=== PATIENT | male | born 1945 | race Caucasian/White ===

== ENCOUNTER → 2017-12-20 | Outpatient (CLI) | payer MEDICARE ==
[~2017-12-20] MED LIST: ATOR10
[2017-12-20 16:37] LABS: Appearance, Urine Clear (Clear); Bilirubin, Urine Neg (Neg); Blood, Urine Neg (Neg); Color, Urine Yellow (P-Yellow); Glucose Qualitative, Urine Neg (Neg); Ketones, Urine Neg (Neg); Leukocyte Esterase, Urine Neg (Neg); Nitrite, Urine Neg (Neg); Protein, Urine 1+ (Neg); Urobilinogen, Urine NORM (Normal)
[2017-12-20 16:52] LABS: Protein, Urine Random 24.8 mg/dL (0.0-11.9)
== END ==
LOC: LAB SHORT 12:51
PROVIDERS: Internal Medicine
DX: R94.4 Abnormal results of kidney function studies (principal)
CPT/HCPCS: 82570; 84156

== ENCOUNTER → 2020-06-21 | Outpatient (CLI) | payer MEDICARE ==
[2020-06-22 10:32] LABS: Stool Occult Bld Immuno 1 Negative (NEGATIVE)
== END | disposition home or self-care (01) ==
LOC: LAB SHORT 07:30 → LAB 07:30
PROVIDERS: Nurse Practitioner Family
DX: Z12.11 Encounter for screening for malignant neoplasm of colon (principal)
CPT/HCPCS: G0328

== ENCOUNTER → 2021-06-30 | Outpatient (CLI) | payer MEDICARE ==
[2021-07-01 10:53] LABS: Stool Occult Bld Immuno 1 Negative (NEGATIVE)
== END | disposition home or self-care (01) ==
LOC: LAB SHORT 13:49
PROVIDERS: Nurse Practitioner Family
DX: Z12.11 Encounter for screening for malignant neoplasm of colon (principal)
CPT/HCPCS: G0328

== ENCOUNTER 2023-03-05 12:31 | Emergency (ER) | payer MEDICARE ==
[~2023-03-05] VITALS: Ht 162.6 cm; Wt 63.5 kg
[2023-03-05 13:00] LABS: BASOPHILS ABSOLUTE AUTO 0.03 K/mm3 (0.00-0.23); BASOPHILS PERCENT AUTO 1 % (0-2); EOSINOPHILS PERCENT AUTO 0 % (0-6); Hematocrit 40.9 % (37.0-53.0); Hemoglobin 14.1 g/dL (13.5-17.5); IMMATURE GRAN ABSOLUTE AUTO 0.03 K/mm3 (0.00-0.10); IMMATURE GRAN PERCENT AUTO 1 % (0-1); LYMPHOCYTES ABSOLUTE AUTO 0.31 K/mm3 (0.84-5.20); LYMPHOCYTES PERCENT AUTO 6 % (21-46); MONOCYTES PERCENT AUTO 4 % (4-13); Mean Corpuscular HGB 33.2 pg (26.0-34.0); Mean Corpuscular HGB Conc 34.5 g/dL (31.5-36.5); Mean Corpuscular Volume 96 fL (80-100); Mean Platelet Volume 9.8 fL (9.1-12.4); NEUTROPHILS ABSOLUTE AUTO 4.28 K/mm3 (1.96-9.15); NEUTROPHILS PERCENT AUTO 88 % (41-73); Platelet Count 126 K/mm3 (150-400); RDW Coefficient Variation 12.9 % (11.7-14.2); Red Blood Cell Count 4.25 M/mm3 (4.30-5.90); White Blood Cell Count 4.85 K/mm3 (4.00-11.30)
[2023-03-05 13:02] LABS: Source, Urine Clean Catch
[2023-03-05 13:12] LABS: Appearance, Urine Hazy (Clear); Bilirubin, Urine Neg (Neg); Blood, Urine 5+ (Neg); Color, Urine Yellow (P-Yellow); Glucose Qualitative, Urine Neg (Neg); Ketones, Urine 1+ (Neg); Leukocyte Esterase, Urine Neg (Neg); Nitrite, Urine Neg (Neg); Protein, Urine 3+ (Neg); Urobilinogen, Urine NORM (Normal)
[2023-03-05 13:28] LABS: Influenza A, PCR NEGATIVE (NEGATIVE); Influenza B, PCR NEGATIVE (NEGATIVE); Resp Syncytial Virus, PCR NEGATIVE (NEGATIVE); SARS-Cov-2 (COVID-19) PCR, MMC NEGATIVE (NEGATIVE)
[2023-03-05 13:30] LABS: Albumin, Blood 3.7 g/dL (3.4-5.0); Albumin/Globulin Ratio 1.2 (0.8-1.8); Bilirubin, Total 0.6 mg/dL (0.1-1.0); Bun/Creatinine Ratio 19.8 (12.0-20.0); Calcium, Blood 8.2 mg/dL (8.5-10.1); Creatinine, Blood 1.31 mg/dL (0.60-1.20); Globulin, Blood 3.2 g/dL (2.2-4.0); Total Protein, Blood 6.9 g/dL (6.4-8.2)
[2023-03-05 13:31] LABS: Bacteria Many /hpf; Squamous Epithelial Cells Few /hpf (Few)
[2023-03-05 13:42] LABS: BAND PERCENT MAN 4 % (0-8); BASOPHILS PERCENT MAN 0 % (0-2); EOSINOPHILS PERCENT MAN 0 % (0-6); LYMPHOCYTES % ATYPICAL MANUAL 2 % (0-0); LYMPHOCYTES ABSOLUTE MAN 0.24 K/mm3 (0.84-5.20); LYMPHOCYTES PERCENT MAN 3 % (21-46); MONOCYTES ABSOLUTE MAN 0.14 K/mm3 (0.16-1.47); MONOCYTES PERCENT MAN 3 % (4-13); NEUTROPHILS ABSOLUTE MAN 4.46 K/mm3 (1.96-9.15); SEG NEUTROPHILS PERCENT MAN 88 % (41-73); TOTAL CELLS COUNTED 100
[2023-03-05] MEDS ORDERED: CEPH500 PO (15:30)
[2023-03-05 16:33] VITALS: BP 111/63
== END 2023-03-05 17:00 | disposition home or self-care (01) ==
LOC: ER 12:31
PROVIDERS: Student in an Organized Health Care Education/Training Program
DX: N39.0 Urinary tract infection, site not specified (principal); E86.0 Dehydration; R41.0 Disorientation, unspecified; Z79.899 Other long term (current) drug therapy
CPT/HCPCS: 0241U; 71046; 80053; 81001; 85025; 87086; 96374; 99284-25; A9270; J0696; J7030

== ENCOUNTER 2023-03-06 02:46 | Inpatient (IN) | payer MEDICARE ==
[~2023-03-06] VITALS: Ht 165.1 cm; Wt 79.9 kg
[~2023-03-06 02:46] MED LIST changes: +CEPH500 PO
[2023-03-06 03:15] LABS: Hematocrit 35.8 % (37.0-53.0); Hemoglobin 12.2 g/dL (13.5-17.5); Mean Corpuscular HGB Conc 34.1 g/dL (31.5-36.5); Mean Corpuscular Volume 97 fL (80-100); Mean Platelet Volume 10.1 fL (9.1-12.4); Platelet Count 82 K/mm3 (150-400); RDW Coefficient Variation 12.8 % (11.7-14.2); RDW Standard Deviation 45.7 fL (35.1-46.3); White Blood Cell Count 4.02 K/mm3 (4.00-11.30)
[2023-03-06 03:26] LABS: Albumin, Blood 2.8 g/dL (3.4-5.0); Bilirubin, Total 0.4 mg/dL (0.1-1.0); Bun/Creatinine Ratio 24.2 (12.0-20.0); Calcium, Blood 7.3 mg/dL (8.5-10.1); Creatinine, Blood 1.32 mg/dL (0.60-1.20); Globulin, Blood 2.7 g/dL (2.2-4.0); Potassium, Blood 4.2 mmol/L (3.5-5.5); Total Protein, Blood 5.5 g/dL (6.4-8.2)
[2023-03-06 03:57] LABS: BAND PERCENT MAN 46 % (0-8); BASOPHILS PERCENT MAN 0 % (0-2); EOSINOPHILS PERCENT MAN 0 % (0-6); LYMPHOCYTES PERCENT MAN 5 % (21-46); MONOCYTES ABSOLUTE MAN 0.04 K/mm3 (0.16-1.47); MONOCYTES PERCENT MAN 1 % (4-13); NEUTROPHILS ABSOLUTE MAN 3.77 K/mm3 (1.96-9.15); SEG NEUTROPHILS PERCENT MAN 48 % (41-73); TOTAL CELLS COUNTED 100
--- NOTE | 2023-03-06 06:22 | NUR ---
REPORT RECIEVED FROM JAMEY DUNCAN RN AT 0600 AND AWAITING PT T/F TO ROOM 341.
[2023-03-06 06:41] VITALS: BP 112/92
[2023-03-06 08:52] VITALS: BP 123/54
[2023-03-06 11:17] LABS: Hemoglobin 12.2 g/dL (13.5-17.5); Mean Corpuscular HGB Conc 34.9 g/dL (31.5-36.5); Mean Corpuscular Volume 95 fL (80-100); Mean Platelet Volume 10.3 fL (9.1-12.4); Platelet Count 66 K/mm3 (150-400); RDW Coefficient Variation 12.8 % (11.7-14.2); RDW Standard Deviation 44.2 fL (35.1-46.3)
[2023-03-06 11:50] LABS: Albumin, Blood 2.7 g/dL (3.4-5.0); Bilirubin, Total 0.5 mg/dL (0.1-1.0); Bun/Creatinine Ratio 21.9 (12.0-20.0); Calcium, Blood 7.3 mg/dL (8.5-10.1); Creatinine, Blood 1.37 mg/dL (0.60-1.20); Globulin, Blood 2.6 g/dL (2.2-4.0); Potassium, Blood 3.9 mmol/L (3.5-5.5); Total Protein, Blood 5.3 g/dL (6.4-8.2)
[2023-03-06 12:32] LABS: BAND PERCENT MAN 29 % (0-8); BASOPHILS PERCENT MAN 0 % (0-2); EOSINOPHILS PERCENT MAN 0 % (0-6); LYMPHOCYTES ABSOLUTE MAN 0.07 K/mm3 (0.84-5.20); LYMPHOCYTES PERCENT MAN 2 % (21-46); MONOCYTES ABSOLUTE MAN 0.03 K/mm3 (0.16-1.47); MONOCYTES PERCENT MAN 1 % (4-13); NEUTROPHILS ABSOLUTE MAN 3.78 K/mm3 (1.96-9.15); SEG NEUTROPHILS PERCENT MAN 68 % (41-73); TOTAL CELLS COUNTED 100
[2023-03-06 16:29] VITALS: BP 130/73
--- NOTE | 2023-03-06 18:03 | NUR ---
PATIENT A/OX2-3 THIS SHIFT. AT BEDSIDE THROUGHOUT THE DAY AND IS VERY CONCERNED ABOUT PATIENTS WEAKNESS. ATTEMPTED TO STAND PATIENT AT SIDE OF BED AND HE HAD DIFFICULTY FOLLOWING DIRECTION AND BEARING WEIGHT. UNABLE TO TO TAKE ANY STEPS. CONTINENT OF URINE, USING URINAL WITH ASSISTANCE. NS INFUSING AT 100ML/HR. ACHS BLOOD SUGARS, COVERAGE PER SLIDING SCALE. TOLERATING VEGETARIAN DIET. DENIES ANY PAIN OR DISCOMFORT. FALL PRECAUTIONS IN PLACE PER UNIT PROTOCOL.
[2023-03-06 20:29] VITALS: BP 126/50
[2023-03-07] VITALS (16 sets, daily range): BP systolic 93–149; BP diastolic 51–126
[2023-03-07 04:56] LABS: Hematocrit 35.7 % (37.0-53.0); Hemoglobin 12.2 g/dL (13.5-17.5); Mean Corpuscular HGB 32.4 pg (26.0-34.0); Mean Corpuscular HGB Conc 34.2 g/dL (31.5-36.5); Mean Corpuscular Volume 95 fL (80-100); RDW Coefficient Variation 12.6 % (11.7-14.2); Red Blood Cell Count 3.77 M/mm3 (4.30-5.90); White Blood Cell Count 3.05 K/mm3 (4.00-11.30)
[2023-03-07 05:06] LABS: Platelet Count 40 K/mm3 (150-400)
[2023-03-07 05:12] LABS: Albumin, Blood 2.7 g/dL (3.4-5.0); Anion Gap 6 mmol/L (6-16); Blood Urea Nitrogen 28 mg/dL (8-24); Bun/Creatinine Ratio 21.1 (12.0-20.0); CO2, Blood 23 mmol/L (21-32); Calcium, Blood 7.7 mg/dL (8.5-10.1); Chloride, Blood 106 mmol/L (98-108); Creatinine, Blood 1.33 mg/dL (0.60-1.20); Glomerular Filtration Rate 55 (60-); Glucose, Blood 169 mg/dL (70-99); Magnesium, Blood 1.9 mg/dL (1.6-2.4); Phosphorus, Blood 2.5 mg/dL (2.5-4.9); Potassium, Blood 3.5 mmol/L (3.5-5.5); Sodium, Blood 135 mmol/L (136-145)
--- NOTE | 2023-03-07 05:13 | NUR ---
CRITICAL PLATELET NOW 40: WAS 126 ON 03/05/23 AND HAS TRENDED DOWNWARD TO 82 THEN 66 AND NOW 50. MADE AWARE AND HE PLANS TO REVIEW HIS CHART AND PLACE ORDERS INDICATED.
[2023-03-07 05:46] LABS: BAND PERCENT MAN 46 % (0-8); BASOPHILS PERCENT MAN 0 % (0-2); EOSINOPHILS PERCENT MAN 0 % (0-6); LYMPHOCYTES % ATYPICAL MANUAL 2 % (0-0); LYMPHOCYTES ABSOLUTE MAN 0.18 K/mm3 (0.84-5.20); LYMPHOCYTES PERCENT MAN 4 % (21-46); METAMYELOCYTE ABSOLUTE MAN 0.06 K/mm3 (0.00-0.00); METAMYELOCYTE PERCENT MAN 2 % (0-0); MONOCYTES PERCENT MAN 0 % (4-13); SEG NEUTROPHILS PERCENT MAN 46 % (41-73); TOTAL CELLS COUNTED 100
--- NOTE | 2023-03-07 06:42 | NUR ---
SUMMARY: PT A/OX2-3 BUT FORGETULL AND IMPULSIVE W/BED ALARM ON FOR FALL RISK. HE REMAINS WEAK, HAS ITERMITTENT DIFFICULTY FOLLOWING INSTRUCTION AND LACKS AWARENESS OF CURRENT LIMITATIONS. IS CONCERNED ABOUT INABILITY TO CARE FOR HIM IF STRENGTH DOESN'T IMPROVE SO PT/OT MAY BE NEEDED PRIOR TO D/C. NS INFUSES AT 100 ML/HR AND IV ABX RECEIVED ON DAY SHIFT FOR UROSEPSIS. CBG'S IMPROVED AT HS AND NO COVERAGE WAS REQUIRED. HE'S BEEN MOSTLY INCONTINENT T/O NOCTE W/URINAL ASSIST PROVIDED WHEN INDICATED AND ATTENDS CHANGED PRN. MEPILEX APPLIED TO BUTTOCKS FOR SBD PREVENTION. TYLENOL RECEIVED PRN FOR TMAX 100.8. ALL OTHER VSS. PLATELETS HAVE TRENDED DOWNWARD FROM 126 ON 03/05/23 AND ARE NOW CRITICAL AT 40. WAS MADE AWARE AND HE'S REVIEWING PT'S CHART TO PLACE ORDERS INDICATED, WILL ENSURE DAY STAFF ARE AWARE. WCTM/REPORT TO DAY RN.
[2023-03-07 11:23] LABS: Hematocrit 35.3 % (37.0-53.0); Hemoglobin 12.2 g/dL (13.5-17.5); Mean Corpuscular HGB 32.4 pg (26.0-34.0); Mean Corpuscular HGB Conc 34.6 g/dL (31.5-36.5); Mean Corpuscular Volume 94 fL (80-100); Mean Platelet Volume 12.4 fL (9.1-12.4); RDW Coefficient Variation 12.6 % (11.7-14.2); RDW Standard Deviation 43.3 fL (35.1-46.3); Red Blood Cell Count 3.76 M/mm3 (4.30-5.90); White Blood Cell Count 2.84 K/mm3 (4.00-11.30)
[2023-03-07 11:33] LABS: Platelet Count 34 K/mm3 (150-400)
[2023-03-07 11:37] LABS: International Normalized Ratio 1.22; Prothrombin Time Results 12.7 Sec (9.7-11.5)
[2023-03-07 11:54] LABS: BAND PERCENT MAN 32 % (0-8); BASOPHILS PERCENT MAN 0 % (0-2); EOSINOPHILS PERCENT MAN 0 % (0-6); LYMPHOCYTES % ATYPICAL MANUAL 3 % (0-0); LYMPHOCYTES ABSOLUTE MAN 0.34 K/mm3 (0.84-5.20); LYMPHOCYTES PERCENT MAN 9 % (21-46); MONOCYTES ABSOLUTE MAN 0.05 K/mm3 (0.16-1.47); MONOCYTES PERCENT MAN 2 % (4-13); NEUTROPHILS ABSOLUTE MAN 2.44 K/mm3 (1.96-9.15); SEG NEUTROPHILS PERCENT MAN 54 % (41-73); TOTAL CELLS COUNTED 100
[2023-03-07 14:31] LABS: BASOPHILS ABSOLUTE AUTO 0.02 K/mm3 (0.00-0.23); BASOPHILS PERCENT AUTO 1 % (0-2); Hematocrit 35.5 % (37.0-53.0); Hemoglobin 12.2 g/dL (13.5-17.5); Mean Corpuscular HGB 32.7 pg (26.0-34.0); Mean Corpuscular HGB Conc 34.4 g/dL (31.5-36.5); Mean Corpuscular Volume 95 fL (80-100); RDW Coefficient Variation 12.6 % (11.7-14.2); RDW Standard Deviation 44.4 fL (35.1-46.3); Red Blood Cell Count 3.73 M/mm3 (4.30-5.90)
[2023-03-07 15:03] LABS: EOSINOPHILS PERCENT AUTO 0 % (0-6); IMMATURE GRAN ABSOLUTE AUTO 0.03 K/mm3 (0.00-0.10); IMMATURE GRAN PERCENT AUTO 1 % (0-1); LYMPHOCYTES ABSOLUTE AUTO 0.57 K/mm3 (0.84-5.20); LYMPHOCYTES PERCENT AUTO 18 % (21-46); MONOCYTES ABSOLUTE AUTO 0.09 K/mm3 (0.16-1.47); MONOCYTES PERCENT AUTO 3 % (4-13); NEUTROPHILS ABSOLUTE AUTO 2.39 K/mm3 (1.96-9.15); NEUTROPHILS PERCENT AUTO 77 % (41-73)
[2023-03-07 15:04] LABS: Mean Platelet Volume 12.9 fL (9.1-12.4); White Blood Cell Count 3.01 K/mm3 (4.00-11.30)
[2023-03-07 15:08] LABS: Platelet Count 26 K/mm3 (150-400)
[2023-03-07 15:12] LABS: BAND PERCENT MAN 40 % (0-8); BASOPHILS ABSOLUTE MAN 0.03 K/mm3 (0.00-0.23); BASOPHILS PERCENT MAN 1 % (0-2); EOSINOPHILS PERCENT MAN 0 % (0-6); LYMPHOCYTES % ATYPICAL MANUAL 4 % (0-0); LYMPHOCYTES ABSOLUTE MAN 0.33 K/mm3 (0.84-5.20); LYMPHOCYTES PERCENT MAN 7 % (21-46); MONOCYTES ABSOLUTE MAN 0.15 K/mm3 (0.16-1.47); MONOCYTES PERCENT MAN 5 % (4-13); NEUTROPHILS ABSOLUTE MAN 2.49 K/mm3 (1.96-9.15); SEG NEUTROPHILS PERCENT MAN 43 % (41-73); TOTAL CELLS COUNTED 100
--- NOTE | 2023-03-07 16:00 | NUR ---
TRANSFER TO ICU AND SUMMARY PATIENT CONFUSED AT TIMES BUT REDIRECTABLE. PATIENT CONTINUES TO HAVE FEVERS. URINE CONTINUES TO BE DARK. PLATELET COUNT CONTINUES TO WORSEN. DR CARRILLO REQUESTING PATIENT TO BE TRANSFERRED TO ICU. REPORT CALLED TO [facility]. PATIENT TRANSFERED VIA BED TO ICU 6. WEDDING RING REMOVED AND GIVEN TO PRIOR TO TRANSFER.
[2023-03-07 17:10] LABS: Source, Urine Foley catheter
[2023-03-07 17:13] LABS: Appearance, Urine Hazy (Clear); Bilirubin, Urine Neg (Neg); Blood, Urine 5+ (Neg); Color, Urine Yellow (P-Yellow); Glucose Qualitative, Urine 2+ (Neg); Ketones, Urine Neg (Neg); Leukocyte Esterase, Urine Neg (Neg); Nitrite, Urine Neg (Neg); Protein, Urine 3+ (Neg); Urobilinogen, Urine NORM (Normal)
[2023-03-07 17:38] LABS: Amorphous Mod (0-Heavy); Squamous Epithelial Cells Not Seen /hpf (Few)
[2023-03-07 17:39] LABS: Bacteria Mod /hpf
[2023-03-07 17:42] LABS: Granular Casts 0-2 /lpf (0)
[2023-03-07 18:06] LABS: Hemoglobin 11.5 g/dL (13.5-17.5); Mean Corpuscular HGB 32.6 pg (26.0-34.0); Mean Corpuscular HGB Conc 34.8 g/dL (31.5-36.5); Mean Corpuscular Volume 94 fL (80-100); RDW Coefficient Variation 12.6 % (11.7-14.2); RDW Standard Deviation 43.2 fL (35.1-46.3); Red Blood Cell Count 3.53 M/mm3 (4.30-5.90); White Blood Cell Count 2.55 K/mm3 (4.00-11.30)
[2023-03-07 18:14] LABS: Mean Platelet Volume 13.1 fL (9.1-12.4)
[2023-03-07 18:15] LABS: Platelet Count 26 K/mm3 (150-400)
[2023-03-07 18:32] LABS: BAND PERCENT MAN 28 % (0-8); BASOPHILS PERCENT MAN 0 % (0-2); EOSINOPHILS PERCENT MAN 0 % (0-6); LYMPHOCYTES % ATYPICAL MANUAL 4 % (0-0); LYMPHOCYTES ABSOLUTE MAN 0.45 K/mm3 (0.84-5.20); LYMPHOCYTES PERCENT MAN 14 % (21-46); MONOCYTES PERCENT MAN 4 % (4-13); NEUTROPHILS ABSOLUTE MAN 1.98 K/mm3 (1.96-9.15); SEG NEUTROPHILS PERCENT MAN 50 % (41-73); TOTAL CELLS COUNTED 100
--- NOTE | 2023-03-07 18:36 | NUR ---
CARE ASSUMPTION/ICU SHIFT SUMMARY PT ARRIVED TO ICU FROM MEDICAL FLOOR FOR CONCERNS OF WORSENING SYMPTOMS. PT ARRIVIED ALERT KNOWING HIS NAME AND BUT COULD NOT TELL ME WHERE HE WAS OR WHY HE IS HERE. PT'S TEMP ON ARRIVAL WAS 104.2 TEMPORALLY SO PROVIDER ORDERED TEMP HUBER FOR CRITICAL CARE I&O'S WELL TEMPATURE MONITORING. COOLING BLANKETS AND ICE PACKS APPLIED ON PT WELL TYLENOL GIVEN, TEMP TRENDING DOWN TO 101.6 AT THIS TIME. PT'S BP WNL AND STABLE. MONITOR SHOWING SR 70'S-80'S. PT DENYING ANY PAIN OR NAUSEA. PT'S FAMILY AT BEDSIDE. NS RUNNING AT 100ML/HR. WILL REPORT TO ONCOMING RN.
[2023-03-08] VITALS (68 sets, daily range): BP systolic 92–158; BP diastolic 49–115
[2023-03-08 02:16] LABS: Hematocrit 33.5 % (37.0-53.0); Hemoglobin 11.6 g/dL (13.5-17.5); Mean Corpuscular HGB 32.3 pg (26.0-34.0); Mean Corpuscular HGB Conc 34.6 g/dL (31.5-36.5); Mean Corpuscular Volume 93 fL (80-100); RDW Coefficient Variation 12.8 % (11.7-14.2); RDW Standard Deviation 44.4 fL (35.1-46.3); Red Blood Cell Count 3.59 M/mm3 (4.30-5.90); White Blood Cell Count 2.62 K/mm3 (4.00-11.30)
[2023-03-08 02:21] LABS: Mean Platelet Volume 13.6 fL (9.1-12.4)
[2023-03-08 02:22] LABS: Platelet Count 22 K/mm3 (150-400)
[2023-03-08 02:35] LABS: C-REACTIVE PROTEIN, EXT RANGE 14.3 mg/dL (0.000-0.300); Magnesium, Blood 2.1 mg/dL (1.6-2.4)
[2023-03-08 02:59] LABS: BAND PERCENT MAN 15 % (0-8); BASOPHILS PERCENT MAN 0 % (0-2); EOSINOPHILS PERCENT MAN 0 % (0-6); LYMPHOCYTES % ATYPICAL MANUAL 5 % (0-0); LYMPHOCYTES ABSOLUTE MAN 0.36 K/mm3 (0.84-5.20); LYMPHOCYTES PERCENT MAN 9 % (21-46); MONOCYTES ABSOLUTE MAN 0.13 K/mm3 (0.16-1.47); MONOCYTES PERCENT MAN 5 % (4-13); NEUTROPHILS ABSOLUTE MAN 2.12 K/mm3 (1.96-9.15); SEG NEUTROPHILS PERCENT MAN 66 % (41-73); TOTAL CELLS COUNTED 100; Thyroid Stimulating Hormone 0.525 uIU/mL (0.360-4.800)
[2023-03-08 03:00] LABS: Albumin, Blood 2.4 g/dL (3.4-5.0); Albumin/Globulin Ratio 0.9 (0.8-1.8); Bilirubin, Total 0.9 mg/dL (0.1-1.0); Creatinine, Blood 1.24 mg/dL (0.60-1.20); Globulin, Blood 2.8 g/dL (2.2-4.0); Phosphorus, Blood 3.8 mg/dL (2.5-4.9); Potassium, Blood 3.7 mmol/L (3.5-5.5); Total Protein, Blood 5.2 g/dL (6.4-8.2)
--- NOTE | 2023-03-08 05:25 | NUR ---
PATIENT MENTATION IMPROVED OVERNIGHT. PATIENT NOW AOX2-3. FOLLOWS COMMANDS AND MOVES ALL EXTREMITIES WITH EQUAL STRENGTH. PATIENT SR WHILE AWAKE, AND SINUS ANI WHILE SLEEPING WITH A HR LOW 40. PATIENT BRIEFLY WENT INTO A VENTRICULAR RHYTHM FOLLOWED BY AFIB BEFORE CONVERTING BACK TO SINUS ANI. RHYTHM SAVED TO CHART. PATIENT BEGAN SHIFT FEBRILE WITH COOLING BLANKET ON. COOLING BLANKET REMOVED WHEN PATIENT WAS 97.5. PATIENT THEN BECAME HYPOTHERMIC AND ABBY HUGGER APPLIED WHEN PATIENT WAS 95.2. PATIENT TEMPERATURE CONTINUED TO DROP TO 94.1 WHEN A WARMING BLANKET WAS APPLIED UNDERNEATH PATIENT, IN ADDITION TO THE ABBY HUGGER. BOTH ABBY HUGGER AND WARMING BLANKET REMOVED WHEN PATIENT REACHED 96. PATIENT NOW FEBRILE AT 100.5. TEMPS CONFIRMED WITH HUBER TEMP PROBE AND RECTAL PROBE. ROOM AIR. HUBER IN PLACE. AND SON AT BEDSIDE.
--- NOTE | 2023-03-08 07:15 | NUR ---
Assumed care of pt at 0700. Report recieved from Kojo RODRIGUEZ. Pt A&O x 4. Answers questions, follows commands, verbalizes needs. Pleasant and cooperative with care. SpO2 90% or greater with 2 LPM NC. Spouse Cindy, sons Obed and Mo at bedside. Pt transferred to ICU 13 as other side of unit is being opened.
[2023-03-08 12:29] LABS: Hematocrit 35.5 % (37.0-53.0); Hemoglobin 12.3 g/dL (13.5-17.5); Mean Corpuscular HGB 32.6 pg (26.0-34.0); Mean Corpuscular HGB Conc 34.6 g/dL (31.5-36.5); Mean Corpuscular Volume 94 fL (80-100); RDW Coefficient Variation 13.1 % (11.7-14.2); RDW Standard Deviation 45.1 fL (35.1-46.3); Red Blood Cell Count 3.77 M/mm3 (4.30-5.90); White Blood Cell Count 3.34 K/mm3 (4.00-11.30)
[2023-03-08 12:39] LABS: Mean Platelet Volume 14.2 fL (9.1-12.4); Platelet Count 19 K/mm3 (150-400)
[2023-03-08 13:26] LABS: BAND PERCENT MAN 27 % (0-8); BASOPHILS PERCENT MAN 0 % (0-2); EOSINOPHILS PERCENT MAN 0 % (0-6); LYMPHOCYTES % ATYPICAL MANUAL 3 % (0-0); LYMPHOCYTES PERCENT MAN 15 % (21-46); MONOCYTES PERCENT MAN 3 % (4-13); NEUTROPHILS ABSOLUTE MAN 2.63 K/mm3 (1.96-9.15); SEG NEUTROPHILS PERCENT MAN 52 % (41-73); TOTAL CELLS COUNTED 100
[2023-03-08 16:16] LABS: Hematocrit 36.1 % (37.0-53.0); Hemoglobin 12.5 g/dL (13.5-17.5); Mean Corpuscular HGB 32.6 pg (26.0-34.0); Mean Corpuscular HGB Conc 34.6 g/dL (31.5-36.5); Mean Corpuscular Volume 94 fL (80-100); RDW Coefficient Variation 13.1 % (11.7-14.2); RDW Standard Deviation 45.4 fL (35.1-46.3); Red Blood Cell Count 3.84 M/mm3 (4.30-5.90); White Blood Cell Count 3.93 K/mm3 (4.00-11.30)
[2023-03-08 16:30] LABS: Mean Platelet Volume 14.7 fL (9.1-12.4); Platelet Count 19 K/mm3 (150-400)
[2023-03-08 16:41] LABS: BAND PERCENT MAN 2 % (0-8); BASOPHILS PERCENT MAN 0 % (0-2); EOSINOPHILS PERCENT MAN 0 % (0-6); LYMPHOCYTES % ATYPICAL MANUAL 5 % (0-0); LYMPHOCYTES ABSOLUTE MAN 1.25 K/mm3 (0.84-5.20); LYMPHOCYTES PERCENT MAN 27 % (21-46); MONOCYTES ABSOLUTE MAN 0.19 K/mm3 (0.16-1.47); MONOCYTES PERCENT MAN 5 % (4-13); NEUTROPHILS ABSOLUTE MAN 2.47 K/mm3 (1.96-9.15); SEG NEUTROPHILS PERCENT MAN 61 % (41-73); TOTAL CELLS COUNTED 100
--- NOTE | 2023-03-08 19:19 | NUR ---
SUMMARY Neuro: Pt A&O x 4. This AM, patient was slow to respond, but now he is much more talkative. Follows directions well, was able to participate in BMAT and also feed himself. Pt's spouse states that yesterday, he was not able to follow directions when staff tried to get him up out of bed and pt was not able to feed himself. Spouse states "he is 100% better than yesterday". Musc: Weak. PT/OT ordered. Pt is able to assist with some of his ADLs and was feeding himself and shaved himself with verbal cues from . Pt requires gait belt and walker with assist from 1-2 staff. Resp: Lungs clear, dim in bases. Initially on 2 LPM NC, but has been on room air for majoiryt of day. Cardiac: SB-SR. HR ranges from 45-65. BP stable. No edema. 2+ radial and pedal pulses. GI: Excellent appetite. One large formed brown BM today. : Good urine output from robles catheter. Skin: Unchanged from initial assessment. Psych: Pt's spouse Alejandrina and sons Gustavo and Mo at bedside all day. Very supportive and involved in patient's care.
--- NOTE | 2023-03-08 19:55 | NUR ---
CRITICAL LAB VALUE NOTIFICATION All critical lab values notified to Dr Irving
--- NOTE | 2023-03-08 20:37 | NUR ---
ASSUMED CARE PT IS A&O. SPO2 >92% ON RA; MAP >65; NSR/SB. PT DENIES CP, SOB, OR NAUSEA. PT'S AT BEDSIDE, STATES THAT IS "BACK TO NORMAL". PT OUT OF CHAIR, BACK INTO BED. HUBER CATHETER PATENT AND DRAINING TO GRAVITY.
[2023-03-09] VITALS (13 sets, daily range): BP systolic 109–154; BP diastolic 57–89
[2023-03-09 03:34] LABS: Hematocrit 33.3 % (37.0-53.0); Hemoglobin 11.6 g/dL (13.5-17.5); Mean Corpuscular HGB 32.6 pg (26.0-34.0); Mean Corpuscular HGB Conc 34.8 g/dL (31.5-36.5); Mean Corpuscular Volume 94 fL (80-100); RDW Coefficient Variation 13.1 % (11.7-14.2); RDW Standard Deviation 45.1 fL (35.1-46.3); Red Blood Cell Count 3.56 M/mm3 (4.30-5.90); White Blood Cell Count 5.39 K/mm3 (4.00-11.30)
[2023-03-09 03:44] LABS: Platelet Count 18 K/mm3 (150-400)
[2023-03-09 04:07] LABS: BAND PERCENT MAN 31 % (0-8); BASOPHILS PERCENT MAN 0 % (0-2); EOSINOPHILS PERCENT MAN 0 % (0-6); LYMPHOCYTES % ATYPICAL MANUAL 4 % (0-0); LYMPHOCYTES ABSOLUTE MAN 1.45 K/mm3 (0.84-5.20); LYMPHOCYTES PERCENT MAN 23 % (21-46); METAMYELOCYTE ABSOLUTE MAN 0.05 K/mm3 (0.00-0.00); METAMYELOCYTE PERCENT MAN 1 % (0-0); MONOCYTES ABSOLUTE MAN 0.43 K/mm3 (0.16-1.47); MONOCYTES PERCENT MAN 8 % (4-13); NEUTROPHILS ABSOLUTE MAN 3.39 K/mm3 (1.96-9.15); PLASMA CELL ABSOLUTE MAN 0.05 K/mm3 (0.00-0.00); PLASMA CELLS PERCENT MAN 1 % (0-0); SEG NEUTROPHILS PERCENT MAN 32 % (41-73); TOTAL CELLS COUNTED 100
--- NOTE | 2023-03-09 06:20 | NUR ---
SHIFT SUMMARY PT RESTED QUIETLY/SLEPT FOR MOST OF NIGHT. PT CONTINUES TO DENY CP, SOB, OR NAUSEA. NO ACUTE EVENTS OVERNIGHT.
[2023-03-09 06:39] LABS: Albumin, Blood 2.4 g/dL (3.4-5.0); Albumin/Globulin Ratio 0.9 (0.8-1.8); Bilirubin, Total 0.7 mg/dL (0.1-1.0); Bun/Creatinine Ratio 28.8 (12.0-20.0); Calcium, Blood 8.2 mg/dL (8.5-10.1); Creatinine, Blood 1.32 mg/dL (0.60-1.20); Globulin, Blood 2.8 g/dL (2.2-4.0); Phosphorus, Blood 3.3 mg/dL (2.5-4.9); Total Protein, Blood 5.2 g/dL (6.4-8.2)
--- NOTE | 2023-03-09 07:15 | NUR ---
Assumed care at 0700. Report received from Michael Miller RN. Pt A&O x 4. Answers questions, follows commands, verbalizes needs. Pleasant and cooperative with care. Initially on 2 LPM NC, which he has been needing at night during previous night shifts. As pt is awake, he was successfully titrated back to room air. SB per monitor. BP stable. Pt's Alejandrina at bedside
[2023-03-09 08:45] LABS: International Normalized Ratio 1.05
[2023-03-09 14:56] LABS: Vancomycin, Trough 10.9 ug/mL (5.0-10.0)
--- NOTE | 2023-03-09 14:56 | NUR ---
Transferred to PCU 17. Report given to Josh RODRIGUEZ. Pt's spouse at bedside at time of transfer. Pt SR, on room air. Plan of care discussed with Dr Irving. Pt's home vitamin regimen ordered. CT PE study ordered to r/o clot since bilat venous duplex was negative. 250 mL bolus NS given before CT scan. Plan to bolus an additional [address] scan.
--- NOTE | 2023-03-09 15:01 | NUR ---
TRANSFER: RECEIVED REPORT FROM MELLO Miller RN. PT TRANSFERRED TO U 13 @1445 VIA RECLINER. BP STABLE, HR SR 80'S, AFEBRILE, SATS >96% ON ROOM AIR. RESPIRATIONS EVEN AND UNLABORED AT REST. PULSES STRONG AND EQUAL THROUGHOUT. PLAN FOR PE STUDY THIS AFTERNOON, PT WILL RECEIVE 250ML BOLUS AFTER STUDY, PER MD ORDERS. POWERGLIDE IN JENNYFER, DRAWS AND FLUSHES. AT BEDSIDE, UPDATED ON PT CARE. CALL LIGHT IN REACH.
--- NOTE | 2023-03-09 17:21 | NUR ---
SHIFT SUMMARY: PT ALERT AND ORIENTED X4, ABLE TO FOLLOW COMMANDS AND MAKE NEEDS KNOWN. COOPERATIVE WITH CARE. BP AND HR STABLE, AFEBRILE, SATS >96% ON ROOM AIR. PE STUDY COMPLETED THIS AFTERNOON. 250ML BOLUS COMPLETED AFTERWARDS. CBG 250-300 THIS SHIFT, COVERED PER EMAR. VANCO GTT IN L FOREARM. ZOSYN GTT IN R. UPPER POWERGLIDE. POWERGLIDE DRAWS AND FLUSHES. PT ONE PERSON ASSIST W/FWW. ABLE TO USE URINAL IND AT BEDSIDE. BED ALARM ON FOR SAFETY. BED IN LOW, CALL LIGHT IN REACH, WILL REPORT TO ONCOMING RN.
[2023-03-10] VITALS (7 sets, daily range): BP systolic 112–145; BP diastolic 61–81
[2023-03-10 04:14] LABS: Hematocrit 30.8 % (37.0-53.0); Hemoglobin 10.6 g/dL (13.5-17.5); Mean Corpuscular HGB 32.1 pg (26.0-34.0); Mean Corpuscular HGB Conc 34.4 g/dL (31.5-36.5); Mean Corpuscular Volume 93 fL (80-100); RDW Coefficient Variation 13.2 % (11.7-14.2); RDW Standard Deviation 45.5 fL (35.1-46.3); White Blood Cell Count 10.72 K/mm3 (4.00-11.30)
[2023-03-10 04:21] LABS: Platelet Count 24 K/mm3 (150-400)
[2023-03-10 04:39] LABS: Albumin, Blood 2.1 g/dL (3.4-5.0); Albumin/Globulin Ratio 0.8 (0.8-1.8); Bilirubin, Total 0.6 mg/dL (0.1-1.0); Bun/Creatinine Ratio 29.7 (12.0-20.0); Creatinine, Blood 1.48 mg/dL (0.60-1.20); Globulin, Blood 2.6 g/dL (2.2-4.0); Magnesium, Blood 2.1 mg/dL (1.6-2.4); Phosphorus, Blood 3.1 mg/dL (2.5-4.9); Potassium, Blood 4.3 mmol/L (3.5-5.5); Total Protein, Blood 4.7 g/dL (6.4-8.2)
--- NOTE | 2023-03-10 05:11 | NUR ---
SHIFT SUMMARY NO ACUTE CHANGES OVERNIGHT. PT WITH SON AT BEDSIDE THROUGHOUT THE NIGHT. SON ASSISTING PT WITH URINAL. BED ALARM ON FOR SAFETY. PT A&O, OCCASIONALLY FORGETFUL, ABLE TO MAKE NEEDS KNOWN. SON DENIED PT HAVING EPISODES OF CONFUSION DURING THE NIGHT. BP STABLE. SB ON MONITOR WITH HR 40-50'S, OCCASIONALLY ANI TO THE 30'S WHILE SLEEPING. PT REPORTS OCCASIONAL DIZZINESS WITH MOVEMENT. AFEBRILE THROUGHOUT THIS SHIFT. ON RA WITH SPO2 >92%. BED IN LOWEST POSITION AND CALL LIGHT WITHIN REACH. THIS RN WILL CONTINUE TO MONITOR UNTIL SHIFT CHANGE AT 0700
[2023-03-10 05:50] LABS: BAND PERCENT MAN 5 % (0-8); BASOPHILS PERCENT MAN 0 % (0-2); EOSINOPHILS PERCENT MAN 0 % (0-6); LYMPHOCYTES % ATYPICAL MANUAL 4 % (0-0); LYMPHOCYTES ABSOLUTE MAN 4.07 K/mm3 (0.84-5.20); LYMPHOCYTES PERCENT MAN 34 % (21-46); METAMYELOCYTE PERCENT MAN 1 % (0-0); MONOCYTES ABSOLUTE MAN 0.53 K/mm3 (0.16-1.47); MONOCYTES PERCENT MAN 5 % (4-13); SEG NEUTROPHILS PERCENT MAN 51 % (41-73); TOTAL CELLS COUNTED 100
--- NOTE | 2023-03-10 17:42 | NUR ---
SHIFT SUMMARY: PT ALERT AND ORIENTED X4, ABLE TO FOLLOW COMMANDS AND MAKE NEEDS KNOWN. FORGETFUL AT TIMES. BP STABLE, HR SB 40'S, AFEBILE, SATS >95% ON ROOM AIR. RESPIRATIONS EVEN AND UNLABORED. DENIES CP/PRESSURE. PT ABLE TO WORK WITH PHYSICAL THERAPY THIS AFTERNOON. TOLERATED WELL. FAMILY REMAINED AT BEDSIDE THROUGHOUT THE DAY, UPDATED ON PT CARE. BED IN LOW, ALARM ON FOR SAFETY, CALL LIGHT IN REACH, WILL REPORT TO ONCOMING RN.
[2023-03-11 04:22] VITALS: BP 130/69
--- NOTE | 2023-03-11 06:40 | NUR ---
SHIFT SUMMARY NO ACUTE CHANGES OVERNIGHT. VITALS REMAIN STABLE. SB WITH HR 40-50'S, OCCASIONALLY ANI TO HIGH 30'S WHILE SLEEPING. PT DENIES DIZZINESS, SOB, OR CHEST PAIN/PRESSURE. ON RA WHILE AWAKE; 2L VIA NC PLACED WHILE SLEEPING D/T PT OCCASIONALLY DESATTING TO THE 80'S. PT ANSWERING QUESTIONS APPROPRIATELY, BUT OCCASIONALLY APPEARS CONFUSED WITH TASKS OR FORGETFUL WITH CONVERSATION. OTHERWISE HE HAS BEEN CALM AND COOPERATIVE WITH CARE. BED ALARM ON FOR SAFETY. AMBULATING WITH 1P ASSIST AND FWW/GAITBELT TO BATHROOM. FAMILY AT BEDSIDE THROUGHOUT THE NIGHT. BED IN LOWEST POSITION AND CALL LIGHT WITHIN REACH. THIS RN WILL CONTINUE TO MONITOR UNTIL SHIFT CHANGE AT 0700.
[2023-03-11 07:08] LABS: Albumin, Blood 2.2 g/dL (3.4-5.0); Anion Gap 6 mmol/L (6-16); Blood Urea Nitrogen 43 mg/dL (8-24); Bun/Creatinine Ratio 30.5 (12.0-20.0); CO2, Blood 23 mmol/L (21-32); Calcium, Blood 7.5 mg/dL (8.5-10.1); Chloride, Blood 110 mmol/L (98-108); Creatinine, Blood 1.41 mg/dL (0.60-1.20); Glomerular Filtration Rate 51 (60-); Glucose, Blood 123 mg/dL (70-99); Phosphorus, Blood 3.3 mg/dL (2.5-4.9); Potassium, Blood 4.1 mmol/L (3.5-5.5); Sodium, Blood 139 mmol/L (136-145)
[2023-03-11 08:06] VITALS: BP 138/79
[2023-03-11 08:25] LABS: Hematocrit 32.7 % (37.0-53.0); Hemoglobin 11.2 g/dL (13.5-17.5); Mean Corpuscular HGB Conc 34.3 g/dL (31.5-36.5); Mean Corpuscular Volume 93 fL (80-100); RDW Coefficient Variation 13.9 % (11.7-14.2); RDW Standard Deviation 47.4 fL (35.1-46.3); White Blood Cell Count 16.21 K/mm3 (4.00-11.30)
[2023-03-11 08:35] LABS: Mean Platelet Volume 13.8 fL (9.1-12.4)
[2023-03-11 08:38] LABS: Platelet Count 42 K/mm3 (150-400)
[2023-03-11 09:02] LABS: BASOPHILS PERCENT MAN 0 % (0-2); EOSINOPHILS ABSOLUTE MAN 0.16 K/mm3 (0.00-0.68); EOSINOPHILS PERCENT MAN 1 % (0-6); LYMPHOCYTES % ATYPICAL MANUAL 5 % (0-0); LYMPHOCYTES ABSOLUTE MAN 7.94 K/mm3 (0.84-5.20); LYMPHOCYTES PERCENT MAN 44 % (21-46); MONOCYTES ABSOLUTE MAN 0.64 K/mm3 (0.16-1.47); MONOCYTES PERCENT MAN 4 % (4-13); NEUTROPHILS ABSOLUTE MAN 7.45 K/mm3 (1.96-9.15); SEG NEUTROPHILS PERCENT MAN 46 % (41-73); TOTAL CELLS COUNTED 100
[2023-03-11 11:26] VITALS: BP 139/71
--- NOTE | 2023-03-11 14:02 | NUR ---
I ASSUMED CARE OF THE PT, AND OBTAINED REPORT FROM ROSE Fuentes RN.
[2023-03-11 16:00] VITALS: BP 138/78
--- NOTE | 2023-03-11 17:56 | NUR ---
AFTERNOON SUMMARY I ASSUMED CARE OF THE PT THIS AFTER NOON. HE HAS HAD FAMILY AT BEDSIDE ALL DAY. PT IS A&OX3-4, IS SLOW TO RESPOND, AND HE ANSWERS QUESTIONS IN SHORT RESPONSES. HE DID HAVE DIFFICULTY EATING DINNER, AND WAS CHOKING ON RICE. THE FAMILY AND PT WERE EUCATED ON THE RISKS OF RICE WHEN A PT IS HAVING DIFFICULTY SWALLOWING. I DID A NEURO CHECK AND THE PT DOES NOT HAVE ANY DEFICIT WITH HIS SMILE OR TOUNGE.BILATERAL EQUAL STRENGTH IN ALL EXTREMITIES. PUPILS, PERRLA. THE FAMILY STATED THEY HAVE NOTICED A DECLINE IN THE LAST YEAR WITH THE PT'S SPEECH. DR. CARRILLO WANTS THE PT TO FOLLOW UP WITH HIS PCP FOR A DEMENTIA WORK UP. ALSO, THE PT'S PLT'S HAVE BEEN RUNNING LOW, AND DR. CARRILLO WANTS THE PT TO FOLLOW UP OUT PT WITH HEMATOLOGY. THERE IS A SLEEP STUDY ORDERED FOR [facility] TO SEE IF THE PT HAS TREVOR. PT AND FAMILY EDUCATED ON THE STUDY. HE IS NOW MEDICAL STATUS W/O TELE. SEE NOTES FOR ANY UPDATES. FAMILY AND PT EDUCATED ON FIRE IGNITION RISK AND SAFETY.
[2023-03-11 20:00] VITALS: BP 137/66
[2023-03-12 04:15] VITALS: BP 116/62
--- NOTE | 2023-03-12 05:38 | NUR ---
SHIFT SUMMARY PT ORIENTATION REMAINS UNCHANGED, PT ALERT. VSS; HR REMAINS SR/SB 50 - 60'S. PT SLEPT ALL OF SHIFT, ONLY WAKING UP TO USE URINAL. AT BEDSIDE T/O SHIFT, VERY HELPFUL AND ASSISTING PT WITH NEEDS. PT AFEBRILE DURING SHIFT. SLEEP STUDY COMPLETE; PT ON RA T/O SHIFT OCCASSIONAL DESAT WHILE SLEEPING BUT DID NOT SUSTAIN. CBG 211, NO COVERAGE INDICATED. PT TOLERATED DRINKING WATER AND TAKING MEDICATIONS WELL. NO SWALLOWING ISSUES NOTED DURING THIS TIME. WILL UPDATE ONCOMING RN
[2023-03-12 08:39] VITALS: BP 133/74
[2023-03-12 11:40] VITALS: BP 130/80
[2023-03-12 13:01] LABS: Hematocrit 34.7 % (37.0-53.0); Hemoglobin 11.8 g/dL (13.5-17.5); Mean Corpuscular HGB 32.1 pg (26.0-34.0); Mean Corpuscular Volume 94 fL (80-100); Mean Platelet Volume 12.2 fL (9.1-12.4); Platelet Count 82 K/mm3 (150-400); RDW Coefficient Variation 13.6 % (11.7-14.2); RDW Standard Deviation 47.7 fL (35.1-46.3); Red Blood Cell Count 3.68 M/mm3 (4.30-5.90); White Blood Cell Count 13.77 K/mm3 (4.00-11.30)
[2023-03-12 13:19] LABS: BAND PERCENT MAN 2 % (0-8); BASOPHILS ABSOLUTE MAN 0.13 K/mm3 (0.00-0.23); BASOPHILS PERCENT MAN 1 % (0-2); EOSINOPHILS ABSOLUTE MAN 0.13 K/mm3 (0.00-0.68); EOSINOPHILS PERCENT MAN 1 % (0-6); LYMPHOCYTES % ATYPICAL MANUAL 3 % (0-0); LYMPHOCYTES ABSOLUTE MAN 8.12 K/mm3 (0.84-5.20); LYMPHOCYTES PERCENT MAN 56 % (21-46); METAMYELOCYTE ABSOLUTE MAN 0.13 K/mm3 (0.00-0.00); METAMYELOCYTE PERCENT MAN 1 % (0-0); MONOCYTES ABSOLUTE MAN 0.27 K/mm3 (0.16-1.47); MONOCYTES PERCENT MAN 2 % (4-13); NEUTROPHILS ABSOLUTE MAN 4.95 K/mm3 (1.96-9.15); SEG NEUTROPHILS PERCENT MAN 34 % (41-73); TOTAL CELLS COUNTED 100
[2023-03-12] MEDS ORDERED: ACET325 PO (14:52)
[2023-03-12] MEDS ORDERED: VITAMIN C125 MG PO (14:52)
[2023-03-12] MEDS ORDERED: VITAMIN D5000 UNIT PO (14:53)
--- NOTE | 2023-03-12 16:07 | NUR ---
DISCHARGE SUMMARY ALERT, MOSTLY ORIENTED, COOPERTIVE. SPOUSE AND SON ATTENTIVE IN ROOM. SBA TO BATHROOM. TOLERATING ADA DIET AND LIQUIDS. VOIDING WELL. VSS. WORKED WITH PHYSICAL THERAPY. DISCHARGE ORDERS GIVEN. DISCHARGE EDUCATION GIVEN ON RX ORDERS, FOLLOW UP WITH PCP. ESTUARDO'S DC'D WNL. SPOUSE PURCHASED SHOWER CHAIR. PATIENT LEFT UNIT AT 1530 VIA WHEELCHAIR WITH FAMILY FOR HOME.
[2023-03-13 20:07] LABS: A/G RATIO 0.9 (0.7-1.7); ALBUMIN 2.4 g/dL (2.9-4.4); ALPHA-1-GLOBULIN 0.3 g/dL (0.0-0.4); BETA GLOBULIN 0.8 g/dL (0.7-1.3); GAMMA GLOBULIN 0.7 g/dL (0.4-1.8); GLOBULIN, TOTAL 2.8 g/dL (2.2-3.9); IMMUNOGLOBULIN A, QN, SERUM 120 mg/dL (61-437); IMMUNOGLOBULIN G, QN, SERUM 547 mg/dL (603-1613); IMMUNOGLOBULIN M, QN, SERUM 40 mg/dL (15-143); M-SPIKE Not Observed g/dL (Not Observed); PROTEIN, TOTAL, SERUM 5.2 g/dL (6.0-8.5)
== END 2023-03-12 15:47 | disposition home or self-care (01) | DRG 871 ==
LOC: ER 02:46 → MEDS 05:30 → ICUE 03-07 16:03 → PCU 03-09 14:46
PROVIDERS: Family Medicine; Internal Medicine; Student in an Organized Health Care Education/Training Program; ADMIT Internal Medicine
PROC: 3E03329 Introduction of Other Anti-infective into Peripheral Vein, Percutaneous Approach (ICD-10-PCS; 2023-03-06)
PROC: 0T9B70Z Drainage of Bladder with Drainage Device, Via Natural or Artificial Opening (ICD-10-PCS; principal; 2023-03-07)
DX: A41.9 Sepsis, unspecified organism (principal); G93.41 Metabolic encephalopathy; J18.9 Pneumonia, unspecified organism; N39.0 Urinary tract infection, site not specified; R65.20 Severe sepsis without septic shock; E86.0 Dehydration; E11.9 Type 2 diabetes mellitus without complications; G47.30 Sleep apnea, unspecified; D69.6 Thrombocytopenia, unspecified; E78.5 Hyperlipidemia, unspecified; Z79.899 Other long term (current) drug therapy; Z90.49 Acquired absence of other specified parts of digestive tract; Z88.0 Allergy status to penicillin
CPT/HCPCS: 36415; 51702; 71250; 71260; 74176; 80053; 80069; 80202; 81001; 82330; 82607; 82746; 82784; 82947; 83521; 83605; 83735; 84100; 84145; 84155; 84165; 84443; 85007; 85025; 85027; 85384; 85610; 85651; 85730; 86140; 86334; 87040; 87077; 87086; 87186; 92610; 93005; 93010; 93970; 94760; 94762; 96365; 97110; 97112; 97116; 97162; 97166; 97530; 97535; 99285-25; A9270; C1751; J0696; J1100; J2543; J3370; J7030; J7050; J7060; Q9967

== ENCOUNTER → 2024-02-15 | Outpatient (CLI) | payer MEDICARE ==
[~2024-02-15] MED LIST changes: +ACET325 PO; +VITAMIN C125 MG PO; +VITAMIN D5000 UNIT PO
[2024-02-15 14:37] LABS: BASOPHILS ABSOLUTE AUTO 0.05 K/mm3 (0.00-0.23); BASOPHILS PERCENT AUTO 1 % (0-2); EOSINOPHILS ABSOLUTE AUTO 0.31 K/mm3 (0.00-0.68); EOSINOPHILS PERCENT AUTO 4 % (0-6); Hematocrit 36.8 % (37.0-53.0); IMMATURE GRAN ABSOLUTE AUTO 0.04 K/mm3 (0.00-0.10); IMMATURE GRAN PERCENT AUTO 1 % (0-1); LYMPHOCYTES ABSOLUTE AUTO 1.16 K/mm3 (0.84-5.20); LYMPHOCYTES PERCENT AUTO 15 % (21-46); MONOCYTES PERCENT AUTO 9 % (4-13); Mean Corpuscular HGB 31.7 pg (26.0-34.0); Mean Corpuscular HGB Conc 32.6 g/dL (31.5-36.5); Mean Corpuscular Volume 97 fL (80-100); Mean Platelet Volume 9.9 fL (9.1-12.4); NEUTROPHILS ABSOLUTE AUTO 5.39 K/mm3 (1.96-9.15); NEUTROPHILS PERCENT AUTO 70 % (41-73); Platelet Count 212 K/mm3 (150-400); RDW Coefficient Variation 11.9 % (11.7-14.2); RDW Standard Deviation 42.5 fL (35.1-46.3); Red Blood Cell Count 3.79 M/mm3 (4.30-5.90); White Blood Cell Count 7.65 K/mm3 (4.00-11.30)
[2024-02-15 16:00] LABS: Percent Saturation 15.7 % (20.0-50.0)
== END | disposition home or self-care (01) ==
LOC: LAB SHORT 14:32 → LAB 14:32
PROVIDERS: Nurse Practitioner Family
DX: R71.0 Precipitous drop in hematocrit (principal)
CPT/HCPCS: 82728; 83540; 83550; 85025

== ENCOUNTER → 2024-02-19 | Outpatient (CLI) | payer MEDICARE ==
[2024-02-21 10:23] LABS: Stool Occult Bld Immuno 1 Negative (NEGATIVE)
== END | disposition home or self-care (01) ==
LOC: LAB SHORT 13:25 → LAB 13:25
PROVIDERS: Nurse Practitioner Family
DX: R71.0 Precipitous drop in hematocrit (principal)
CPT/HCPCS: 82274

== ENCOUNTER 2024-11-11 08:22 | Day surgery (SDC) | payer MEDICARE ==
[2024-11-11] VITALS (8 sets, daily range): BP systolic 117–142; BP diastolic 59–70
[~2024-11-11] VITALS: Ht 159 cm; Wt 70.9 kg
[~2024-11-11 08:22] MED LIST changes: +CeFAZolin Sodium 2,000 MG in NS 100 ML IV SCH; +Lactated Ringer's 1,000 ML IV SCH; +MULTI-VITAMIN1 EAC2 PO; +OCUVITE BLUE L1 EACH; +TUMS500 MG PO; +TURMERIC500 M2; +UBID10; +UBID10 PO
--- NOTE | 2024-11-11 09:47 | NUR ---
Ambulatory in Day Surgery. Patient States Post-Procedure ride home has been arranged. Pt states took two chlorhexedine showers at home. Surgical site prepped with 2% Chlorhexidine cloth wipe. Pre-Op teaching done. Pt verbalizes understanding. Lungs clear T/O to Auscultation. History, Chart, Medications and Allergies reviewed before start of procedure. Patient confirms NPO status and agrees with scheduled surgery. Pt's states pt's glasses are at home.
[2024-11-11] MEDS ORDERED: Bupivacaine 0.5% HCl 5 MG/ML 30MLVIAL ONE (09:49)
[2024-11-11] MEDS ORDERED: CeFAZolin Sodium 2,000 MG VIAL ONE (09:50)
[2024-11-11] MEDS ORDERED: propofoL 20 ML IV ONE (09:56)
[2024-11-11] MEDS ORDERED: FentaNYL Citrate 50 MCG/ML 2 ML Injection ONE (09:57)
[2024-11-11] MEDS ORDERED: Glycopyrrolate 0.2 MG/ML 5ML VIAL ONE (10:23)
[2024-11-11] MEDS ORDERED: Ondansetron HCl 2 MG / ML 2ML Vial ONE ×2 (10:24→14:42)
[2024-11-11] MEDS ORDERED: Dexamethasone Sod Phos 10 MG/ML 1ML VIAL ONE ×2 (10:24→14:42)
[2024-11-11] MEDS ORDERED: ePHEDrine Sulfate 50 MG/ML 1ML Injection ONE ×2 (10:25→15:03)
[2024-11-11] MEDS ORDERED: Metoclopramide HCl 5MG / ML 2ML Vial IV PRN (10:45)
[2024-11-11] MEDS ORDERED: FentaNYL Citrate 50 MCG/ML 2 ML Injection IV PRN ×3 (10:50)
[2024-11-11] MEDS ORDERED: HYDROmorphone HCl/Pf 1MG SYR IV PRN (10:50)
[2024-11-11] MEDS ORDERED: HYDROcodone 5-APAP 325 TAB PO PRN (12:55)
--- NOTE | 2024-11-11 12:58 | NUR ---
REPORT RECEIVED FROM WADE RODRIGUEZ. VSS. PT ON RA. PT ABLE TO REPOSITION SELF IN BED. PT REQUESTING PO FLUIDS AND TOLERATING THEM WELL. PT DENIES PAIN, NAUSEA OR OTHER DISCOMFORTS. PT HAS 3 SURGICAL SITES TO ABD COVERED WITH EXOFEN THAT ARE CDI. PT NEGRA AT BEDSIDE.
--- NOTE | 2024-11-11 13:24 | NUR ---
Patient up to Ambulate independently. Gait steady AND CONSISTENT WITH PT BASELINE. VSS AND CONSISTENT WITH PT BASELINE. PT HAS NO COMPLAINTS AND VERBALIZES READINESS TO GO HOME. Discharge instructions reviewed with patient AND HIS . Patient AND HIS verbalize understanding. Copy given to patient to take home. Dressing to procedure site clean, dry, intact with no visible drainage, swelling, erythema or bruising noted. Patient States Post-Procedure ride home has been arranged. Discharged via wheelchair to private car for ride home. PT BELONGINGS RETURNED TO PT.
[2024-11-11] MEDS ORDERED: Ketamine HCl 100 MG / ML 5ML Vial ONE (15:17)
[2024-11-11] MEDS ORDERED: Rocuronium Bromide 10 MG/ML 5ML Injection IV ONE (16:28)
== END 2024-11-11 13:25 | disposition home or self-care (01) ==
LOC: ORSCMMR 08:22 → ORD 10:00 → ORSCMMR 10:00 → ORD 11:45 → ORSCMMR 13:25
PROVIDERS: Surgery
PROC: 0YU64JZ Supplement Left Inguinal Region with Synthetic Substitute, Percutaneous Endoscopic Approach (ICD-10-PCS; principal; 2024-11-11 10:00)
PROC: 8E0W4CZ Robotic Assisted Procedure of Trunk Region, Percutaneous Endoscopic Approach (ICD-10-PCS; principal; 2024-11-11 10:00)
DX: K40.30 Unilateral inguinal hernia, with obstruction, without gangrene, not specified as recurrent (principal); N18.9 Chronic kidney disease, unspecified; G47.33 Obstructive sleep apnea (adult) (pediatric); R73.03 Prediabetes; Z99.81 Dependence on supplemental oxygen
CPT/HCPCS: 82947; C1781; J0690; J1100; J2405; J2704; J3010; J7120

== ENCOUNTER → 2024-11-18 | Outpatient (CLI) | payer MEDICARE ==
[~2024-11-18] MED LIST changes: -CeFAZolin Sodium 2,000 MG in NS 100 ML IV SCH; -Lactated Ringer's 1,000 ML IV SCH
[2024-11-18 12:20] LABS: BASOPHILS ABSOLUTE AUTO 0.05 K/mm3 (0.00-0.23); BASOPHILS PERCENT AUTO 1 % (0-2); EOSINOPHILS ABSOLUTE AUTO 0.12 K/mm3 (0.00-0.68); EOSINOPHILS PERCENT AUTO 1 % (0-6); Hematocrit 38.1 % (37.0-53.0); Hemoglobin 12.4 g/dL (13.5-17.5); IMMATURE GRAN ABSOLUTE AUTO 0.03 K/mm3 (0.00-0.10); IMMATURE GRAN PERCENT AUTO 0 % (0-1); LYMPHOCYTES ABSOLUTE AUTO 0.91 K/mm3 (0.84-5.20); LYMPHOCYTES PERCENT AUTO 11 % (21-46); MONOCYTES ABSOLUTE AUTO 0.85 K/mm3 (0.16-1.47); MONOCYTES PERCENT AUTO 10 % (4-13); Mean Corpuscular HGB Conc 32.5 g/dL (31.5-36.5); Mean Corpuscular Volume 98 fL (80-100); Mean Platelet Volume 9.6 fL (9.1-12.4); NEUTROPHILS ABSOLUTE AUTO 6.49 K/mm3 (1.96-9.15); NEUTROPHILS PERCENT AUTO 77 % (41-73); Platelet Count 205 K/mm3 (150-400); RDW Coefficient Variation 12.5 % (11.7-14.2); RDW Standard Deviation 45.3 fL (35.1-46.3); Red Blood Cell Count 3.87 M/mm3 (4.30-5.90); White Blood Cell Count 8.45 K/mm3 (4.00-11.30)
== END | disposition home or self-care (01) ==
LOC: LAB SHORT 12:16 → LAB 12:16
PROVIDERS: Physician Assistant
DX: R50.9 Fever, unspecified (principal)
CPT/HCPCS: 85025

== ENCOUNTER 2025-04-19 04:03 | Emergency (ER) | payer MEDICARE ==
[~2025-04-19] VITALS: Ht 154.9 cm; Wt 68.0 kg
[2025-04-19 04:49] LABS: BASOPHILS ABSOLUTE AUTO 0.10 K/mm3 (0.00-0.23); BASOPHILS PERCENT AUTO 1 % (0-2); EOSINOPHILS ABSOLUTE AUTO 0.35 K/mm3 (0.00-0.68); EOSINOPHILS PERCENT AUTO 4 % (0-6); Hematocrit 38.3 % (37.0-53.0); Hemoglobin 12.5 g/dL (13.5-17.5); IMMATURE GRAN ABSOLUTE AUTO 0.03 K/mm3 (0.00-0.10); IMMATURE GRAN PERCENT AUTO 0 % (0-1); LYMPHOCYTES ABSOLUTE AUTO 1.26 K/mm3 (0.84-5.20); LYMPHOCYTES PERCENT AUTO 15 % (21-46); MONOCYTES ABSOLUTE AUTO 0.65 K/mm3 (0.16-1.47); MONOCYTES PERCENT AUTO 8 % (4-13); Mean Corpuscular HGB Conc 32.6 g/dL (31.5-36.5); Mean Corpuscular Volume 96 fL (80-100); NEUTROPHILS ABSOLUTE AUTO 5.96 K/mm3 (1.96-9.15); NEUTROPHILS PERCENT AUTO 71 % (41-73); NRBC ABSOLUTE 0.00 K/mm3 (0.00-0.02); NRBC Auto 0.0 /100 WBC (0.0-0.2); Platelet Count 279 K/mm3 (150-400); RDW Coefficient Variation 11.9 % (11.7-14.2); RDW Standard Deviation 41.4 fL (35.1-46.3)
[2025-04-19 05:08] LABS: Alanine Aminotransfer (ALT/SGP 20.0 U/L (12-78); Albumin, Blood 3.4 g/dL (3.4-5.0); Albumin/Globulin Ratio 1.1 (0.8-1.8); Anion Gap 7.0 mmol/L (3-11); Aspartate Aminotrans (AST/SGOT 14.0 U/L (12-37); Bilirubin, Total 0.5 mg/dL (0.1-1.0); Blood Urea Nitrogen 33.0 mg/dL (8-24); CO2, Blood 30.0 mmol/L (21-32); Calcium, Blood 11.2 mg/dL (8.5-10.1); Chloride, Blood 105.0 mmol/L (98-108); Creatinine, Blood 1.42 mg/dL (0.60-1.20); Globulin, Blood 3.2 g/dL (2.2-4.0); Glucose, Blood 107.0 mg/dL (70-99); Potassium, Blood 4.2 mmol/L (3.5-5.5); Sodium, Blood 138.0 mmol/L (136-145); Total Protein, Blood 6.6 g/dL (6.4-8.2)
[2025-04-19 07:35] VITALS: BP 123/82
== END 2025-04-19 07:36 | disposition home or self-care (01) ==
LOC: ER 04:03
PROVIDERS: Emergency Medicine
DX: R00.1 Bradycardia, unspecified (principal); Z79.899 Other long term (current) drug therapy; Z88.0 Allergy status to penicillin; Z88.5 Allergy status to narcotic agent
CPT/HCPCS: 80053; 84484; 85025; 93005; 93010; 99284-25